=== PATIENT | male | born 1940 | race African-American/Black ===

== ENCOUNTER 2024-03-12 14:17 | Emergency (ER) | payer BC ==
[~2024-03-12] VITALS: Ht 180.3 cm; Wt 70.0 kg
[2024-03-12 14:17] VITALS: BP 137/74; PULSE 78; RESP 18; TEMP 98.5; O2SAT 95
[2024-03-12 15:52] LABS: CHLORIDE 109 mEq/L (98-107); POTASSIUM 3.9 mEq/L (3.5-5.1); SODIUM 143 mEq/L (136-145)
[2024-03-12 15:55] LABS: CALCIUM 9.8 mg/dL (8.7-10.4); CARBON DIOXIDE 23 mEq/L (21-32)
[2024-03-12 15:56] LABS: TROPONIN I HIGH SENSITIVITY 11 ng/L (3.0-53)
[2024-03-12 15:58] LABS: CREATININE 1.4 mg/dL (0.6-1.3); GLUCOSE 126 mg/dL (70-105); UREA NITROGEN BLOOD 15 mg/dL (9-23)
[2024-03-12 16:30] LABS: HEMATOCRIT. 31.5 % (42.0-52.0); HEMOGLOBIN. 10.2 g/dL (14.0-18.0); MEAN CORPUSCULAR HGB CONC 32.2 g/dL (31.0-37.0); MEAN CORPUSCULAR VOLUME 102.4 fL (80.0-94.0); MEAN PLATELET VOLUME 8.3 fl (7.4-10.4); PLATELET 189 x1000/uL (130-400); RED BLOOD CELL COUNT 3.08 mill/uL (4.7-6.1); RED CELL DISTRIBUTION WIDTH 15.3 % (11.6-14.6); WHITE BLOOD COUNT 10.2 x1000/uL (4.5-11.0)
[2024-03-12 16:31] LABS: DIFFERENTIAL COMMENT 1
[2024-03-12 18:43] LABS: PLATELET ESTIMATE NORMAL
[2024-03-12 18:44] LABS: GIANT PLATELETS 1+
== END 2024-03-12 15:32 | disposition home or self-care (01) ==
LOC: ER 14:25
DX: R55 Syncope and collapse (principal); Z88.0 Allergy status to penicillin
CPT/HCPCS: 36415; 80048; 84484; 85025; 93005; 99284